=== PATIENT | female | born 1985 | race Caucasian/White ===

== ENCOUNTER 2016-06-26 02:18 | Outpatient (CLI) | payer OTHER ==
[~2016-06-26] VITALS: Ht 170.2 cm; Wt 115.0 kg
[2016-06-26 03:34] VITALS: BP 111/62
== END 2016-06-26 04:00 | disposition home or self-care (01) ==
LOC: LDOP 02:18
PROVIDERS: ATTEND Obstetrics & Gynecology
DX: O26.893 Other specified pregnancy related conditions, third trimester (principal); R10.9 Unspecified abdominal pain; O99.513 Diseases of the respiratory system complicating pregnancy, third trimester; J45.909 Unspecified asthma, uncomplicated; O99.283 Endocrine, nutritional and metabolic diseases complicating pregnancy, third trimester; E07.89 Other specified disorders of thyroid; Z3A.39 39 weeks gestation of pregnancy
CPT/HCPCS: 59025; 99211; G0463

== ENCOUNTER 2016-07-01 00:18 | Inpatient (IN) | payer OTHER ==
[~2016-07-01] VITALS: Ht 170.2 cm; Wt 115.0 kg
[2016-07-01] MEDS ORDERED: OXYTOCIN 30U/ 0.9% NaCL 500ML 500 ML IV ONE (00:29)
[2016-07-01] MEDS ORDERED: D5%-LACTATED RINGERS 1,000 ML IV SCH (00:29)
[2016-07-01] MEDS ORDERED: LACTATED RINGERS 1,000 ML IV SCH ×2 (00:29→03:06)
[2016-07-01] MEDS ORDERED: CALCIUM CARBONATE 500 MG TAB.CHEW PO PRN ×2 (00:30→13:30)
[2016-07-01] MEDS ORDERED: FENTANYL PF 100 MCG/2ML IVPush PRN (00:30)
[2016-07-01] MEDS ORDERED: FENTANYL PF 100 MCG/2ML IV PRN (00:30)
[2016-07-01] MEDS ORDERED: ONDANSETRON 2MG/ML, 2ML IVPush PRN (00:30)
[2016-07-01] MEDS ORDERED: TERBUTALINE 1 MG/ML, 1ML IVPush PRN (00:30)
[2016-07-01] MEDS ORDERED: NEWBORN KIT ONE (00:34)
[2016-07-01] MEDS ORDERED: OXYTOCIN 30U/ 0.9% NaCL 500ML 500 ML ONE ×2 (00:34→07:22)
[2016-07-01 01:08] LABS: HEMOGLOBIN 12.5 g/dL (11.7-16.4)
[2016-07-01] MEDS: CLINDAMYCIN PMX 900MG/50ML 50 ML IVPB SCH ×2 (01:38→09:30)
[2016-07-01] MEDS ORDERED: FENTANYL/BUPIV./NS/PF 250 ML EPIDCONT ONE ×2 (02:00→02:01)
[2016-07-01] MEDS ORDERED: LIDOCAINE/PF 1.5%-EPI 1:200K, 30ML ONE (02:01)
[2016-07-01] MEDS ORDERED: BUPIVACAINE 0.25% ONE (02:01)
[2016-07-01] MEDS ORDERED: LIDOCAINE 1%, 20ML ONE ×2 (02:01→12:57)
[2016-07-01] MEDS ORDERED: FENTANYL/BUPIV./NS/PF 250 ML EPIDCONT SCH (03:06)
[2016-07-01] MEDS ORDERED: LACTATED RINGERS 1,000 ML IVBOLUS PRN (03:30)
[2016-07-01 07:40] VITALS: BP 109/58
[2016-07-01] MEDS ORDERED: LEVO25TA2 PO (08:09)
[2016-07-01] MEDS ORDERED: PREN1TAB60 PO (08:42)
[2016-07-01] MEDS ORDERED: OXYTOCIN 30U/ 0.9% NaCL 500ML 500 ML IV PRN (09:36)
[2016-07-01] MEDS: OXYTOCIN 30U/ 0.9% NaCL 500ML 500 ML IV SCH ×2 (13:17→23:17)
[2016-07-01] MEDS ORDERED: MISOPROSTOL 200 MCG TABLET PO PRN (13:30)
[2016-07-01] MEDS ORDERED: HYDROcodone/APAP 5/325 TABLET PO PRN ×2 (13:30)
[2016-07-01] MEDS ORDERED: ACETAMINOPHEN 325 MG TABLET PO PRN (13:30)
[2016-07-01] MEDS ORDERED: DOCUSATE 100 MG CAPSULE PO PRN (13:30)
[2016-07-01] MEDS ORDERED: ONDANSETRON 2MG/ML, 2ML IV PRN (13:30)
[2016-07-01 16:05] VITALS: BP 99/57
[2016-07-01 19:10] VITALS: BP 103/60
[2016-07-01] MEDS: IBUPROFEN 800 MG TABLET PO PRN (20:25)
[2016-07-01 21:13] LABS: HEMOGLOBIN 10.9 g/dL (11.7-16.4)
[2016-07-01] MEDS ORDERED: RHOGAM FROM BLOOD BANK 1 NOTE EA IM/IV ONE (23:30)
[2016-07-01 23:34] VITALS: BP 98/59
[2016-07-02] MEDS: IBUPROFEN 800 MG TABLET PO PRN (04:50)
[2016-07-02 05:24] VITALS: BP 105/66
[2016-07-02 08:20] VITALS: BP 103/60
[2016-07-02] MEDS ORDERED: PRENATAL VIT/IRON/FA 1 EACH TABLET PO SCH (09:00)
[2016-07-02] MEDS: OXYTOCIN 30U/ 0.9% NaCL 500ML 500 ML IV SCH ×2 (09:17→16:04)
[2016-07-02 12:09] VITALS: BP 110/60
[2016-07-02] MEDS ORDERED: IBUP-1222 PO (13:49)
[2016-07-02 16:10] VITALS: BP 128/78
== END 2016-07-02 13:25 | disposition home or self-care (01) | DRG 775 ==
LOC: LDOP 00:18 → LDIP 00:49 → 2NW 15:50
PROVIDERS: ADMIT Specialist; ATTEND Specialist
PROC: 10E0XZZ Delivery of Products of Conception, External Approach (ICD-10-PCS; principal; 2016-07-01)
PROC: 0KQM0ZZ Repair Perineum Muscle, Open Approach (ICD-10-PCS; 2016-07-01)
PROC: 10907ZC Drainage of Amniotic Fluid, Therapeutic from Products of Conception, Via Natural or Artificial Opening (ICD-10-PCS; 2016-07-01)
PROC: 00HU33Z Insertion of Infusion Device into Spinal Canal, Percutaneous Approach (ICD-10-PCS; 2016-07-01)
PROC: 3E0R3CZ (ICD-10-PCS; 2016-07-01)
PROC: 30233S1 Transfusion of Nonautologous Globulin into Peripheral Vein, Percutaneous Approach (ICD-10-PCS; 2016-07-01)
DX: O99.284 Endocrine, nutritional and metabolic diseases complicating childbirth (principal); E03.9 Hypothyroidism, unspecified; O99.824 Streptococcus B carrier state complicating childbirth; O69.1XX0 Labor and delivery complicated by cord around neck, with compression, not applicable or unspecified; O99.214 Obesity complicating childbirth; E66.9 Obesity, unspecified; O70.1 Second degree perineal laceration during delivery; O34.211 Maternal care for low transverse scar from previous cesarean delivery; Z37.0 Single live birth; Z3A.40 40 weeks gestation of pregnancy; Z88.0 Allergy status to penicillin; Z68.39 Body mass index [BMI] 39.0-39.9, adult; Z23 Encounter for immunization
CPT/HCPCS: 36415; 85025; 85461; 86850; 86900; J2790; J3490; J2590; J3010; J7120; J7121

== ENCOUNTER 2019-05-11 15:35 | Inpatient (IN) | payer OTHER ==
[~2019-05-11] VITALS: Ht 170.2 cm; Wt 122.7 kg
[~2019-05-11 15:35] MED LIST: IBUP-1222 PO; LEVO25TA2 PO; PREN1TAB60 PO
[2019-05-15] MEDS ORDERED: OXYTOCIN 30U/ 0.9% NaCL 500ML 500 ML IV ONE (05:48)
[2019-05-15] MEDS ORDERED: D5%-LACTATED RINGERS 1,000 ML IV SCH (05:48)
[2019-05-15] MEDS ORDERED: OXYTOCIN 30U/ 0.9% NaCL 500ML 500 ML IV PRN (05:48)
[2019-05-15] MEDS ORDERED: NEWBORN KIT ONE (05:56)
[2019-05-15] MEDS ORDERED: FENTANYL PF 100 MCG/2ML IV PRN (06:00)
[2019-05-15] MEDS ORDERED: CALCIUM CARBONATE 500 MG TAB.CHEW PO PRN (06:00)
[2019-05-15] MEDS ORDERED: TERBUTALINE 1 MG/ML, 1ML SQ PRN (06:00)
[2019-05-15] MEDS ORDERED: METOCLOPRAMIDE 5 MG/ML, 2ML IVPush PRN (06:00)
[2019-05-15] MEDS ORDERED: TERBUTALINE 1 MG/ML, 1ML IVPush PRN (06:00)
[2019-05-15] MEDS ORDERED: FENTANYL PF 100 MCG/2ML IVPush PRN (06:00)
[2019-05-15] MEDS ORDERED: ONDANSETRON 2MG/ML, 2ML IVPush PRN ×2 (06:00→20:30)
[2019-05-15] MEDS ORDERED: SODIUM CITRATE/CITRIC ACID 30 ML UDC PO PRN (06:00)
[2019-05-15 06:27] LABS: BASOPHILS # (AUTO) 0.02 x10^3/uL (0-0.1); BASOPHILS % (AUTO) 0 % (0-1); EOSINOPHILS # (AUTO) 0.07 x10^3/uL (0-0.4); EOSINOPHILS % (AUTO) 1 % (1-7); LYMPHOCYTES # (AUTO) 1.47 x10^3/uL (1-3.4); LYMPHOCYTES % (AUTO) 19 % (22-44); MD NO; MEAN CORPUSCULAR HEMOGLOBIN 30.4 pg (27.0-34.8); MEAN CORPUSCULAR HGB CONC 33.4 g/dL (32.4-35.8); MEAN CORPUSCULAR VOLUME 90.8 fL (80-100); MEAN PLATELET VOLUME 8.6 fL (7.4-10.4); MONOCYTES # (AUTO) 0.68 x10^3/uL (0.2-0.8); MONOCYTES % (AUTO) 9 % (2-9); NEUTROPHILS % (AUTO) 71 % (42-75); PLATELET COUNT 188 x10^3/uL (130-400); RED BLOOD COUNT 4.07 x10^6/uL (3.82-5.3); RED CELL DISTRIBUTION WIDTH 14.5 % (9.6-15.2)
[2019-05-15] MEDS ORDERED: OXYTOCIN 30U/ 0.9% NaCL 500ML 500 ML ONE ×2 (06:59→19:45)
[2019-05-15] MEDS: LACTATED RINGERS 1,000 ML IV SCH ×3 (07:04→20:20)
[2019-05-15] MEDS ORDERED: LIDOCAINE 1%, 10ML ONE (07:53)
[2019-05-15] MEDS ORDERED: FENTANYL/BUPIV./NS/PF 250 ML EPIDCONT SCH ×2 (11:05→20:12)
[2019-05-15] MEDS ORDERED: FENTANYL PF 500 MCG, BUPIVACAINE/PF 0.5%, 30ML 62.5 ML in SODIUM CHLORIDE 0.9% 177.5 ML EPIDCONT SCH (11:30)
[2019-05-15] MEDS ORDERED: BUPIVACAINE 0.25% ONE (16:30)
[2019-05-15] MEDS ORDERED: HYDROcodone/APAP 5/325 TABLET PO PRN (19:00)
[2019-05-15] MEDS ORDERED: MISOPROSTOL 200 MCG TABLET PR PRN (19:00)
[2019-05-15] MEDS ORDERED: ACETAMINOPHEN 325 MG TABLET PO PRN (19:00)
[2019-05-15] MEDS ORDERED: RHOGAM FROM BLOOD BANK 1 NOTE EA IM/IV ONE (19:00)
[2019-05-15] MEDS ORDERED: ONDANSETRON 2MG/ML, 2ML IV PRN (19:00)
[2019-05-15] MEDS ORDERED: OXYcodone/APAP 5/325MG TABLET PO PRN (19:00)
[2019-05-15] MEDS ORDERED: BISACODYL 10 MG SUPP PR PRN (19:00)
[2019-05-15] MEDS ORDERED: DOCUSATE 100 MG CAPSULE PO PRN (19:00)
[2019-05-15] MEDS ORDERED: LACTATED RINGERS 1,000 ML IV SCH (20:12)
[2019-05-15] MEDS: OXYTOCIN 30U/ 0.9% NaCL 500ML 500 ML IV SCH (20:21)
[2019-05-15] MEDS ORDERED: DIPHENHYDRAMINE 50 MG/ML, 1ML IVPush PRN (20:30)
[2019-05-15] MEDS ORDERED: LACTATED RINGERS 1,000 ML IVBOLUS PRN (20:30)
[2019-05-15] MEDS ORDERED: EPHEDRINE 50 MG/ML, 1ML IVPush PRN (20:30)
[2019-05-15] MEDS ORDERED: NALOXONE 0.4 MG/ML, 1ML IVPush PRN (20:30)
[2019-05-15] MEDS ORDERED: IBUPROFEN 800 MG TABLET ONE (21:00)
[2019-05-15] MEDS: IBUPROFEN 800 MG TABLET PO PRN (21:01)
[2019-05-15 22:30] VITALS: BP 120/69
[2019-05-16 04:30] VITALS: BP 100/62
[2019-05-16] MEDS: OXYTOCIN 30U/ 0.9% NaCL 500ML 500 ML IV SCH (04:41)
[2019-05-16] MEDS: IBUPROFEN 800 MG TABLET PO PRN ×2 (05:00→13:33)
[2019-05-16 07:01] VITALS: BP 111/73
[2019-05-16] MEDS ORDERED: LEVOTHYROXINE 100 MCG TABLET PO SCH (07:30)
[2019-05-16 08:57] LABS: BASOPHILS # (AUTO) 0.02 x10^3/uL (0-0.1); BASOPHILS % (AUTO) 0 % (0-1); EOSINOPHILS # (AUTO) 0.02 x10^3/uL (0-0.4); EOSINOPHILS % (AUTO) 0 % (1-7); LYMPHOCYTES # (AUTO) 1.53 x10^3/uL (1-3.4); LYMPHOCYTES % (AUTO) 18 % (22-44); MD NO; MEAN CORPUSCULAR HEMOGLOBIN 30.8 pg (27.0-34.8); MEAN CORPUSCULAR HGB CONC 33.9 g/dL (32.4-35.8); MEAN CORPUSCULAR VOLUME 90.9 fL (80-100); MEAN PLATELET VOLUME 8.9 fL (7.4-10.4); MONOCYTES # (AUTO) 0.72 x10^3/uL (0.2-0.8); MONOCYTES % (AUTO) 8 % (2-9); NEUTROPHILS # (AUTO) 6.31 x10^3/uL (1.8-6.8); NEUTROPHILS % (AUTO) 73 % (42-75); PLATELET COUNT 173 x10^3/uL (130-400); RED BLOOD COUNT 3.75 x10^6/uL (3.82-5.3); RED CELL DISTRIBUTION WIDTH 14.6 % (9.6-15.2)
[2019-05-16] MEDS ORDERED: PRENATAL VIT/IRON/FA 1 EACH TABLET PO SCH (09:00)
[2019-05-16 11:55] VITALS: BP 102/69
[2019-05-16 16:03] VITALS: BP 117/77
== END 2019-05-16 19:00 | disposition home or self-care (01) | DRG 807 ==
LOC: LDIP 05-15 05:44 → 2NW 05-15 22:24
PROVIDERS: ADMIT Obstetrics & Gynecology; ATTEND Obstetrics & Gynecology
PROC: 10E0XZZ Delivery of Products of Conception, External Approach (ICD-10-PCS; principal; 2019-05-15)
PROC: 10907ZC Drainage of Amniotic Fluid, Therapeutic from Products of Conception, Via Natural or Artificial Opening (ICD-10-PCS; 2019-05-15)
PROC: 3E033VJ Introduction of Other Hormone into Peripheral Vein, Percutaneous Approach (ICD-10-PCS; 2019-05-15)
PROC: 3E0R3BZ Introduction of Anesthetic Agent into Spinal Canal, Percutaneous Approach (ICD-10-PCS; 2019-05-15)
PROC: 00HU33Z Insertion of Infusion Device into Spinal Canal, Percutaneous Approach (ICD-10-PCS; 2019-05-15)
DX: O48.0 Post-term pregnancy (principal); Z37.0 Single live birth; O99.284 Endocrine, nutritional and metabolic diseases complicating childbirth; E03.9 Hypothyroidism, unspecified; O34.211 Maternal care for low transverse scar from previous cesarean delivery; O99.214 Obesity complicating childbirth; Z88.0 Allergy status to penicillin; Z3A.40 40 weeks gestation of pregnancy
CPT/HCPCS: 36415; J3490; S0020; 82803; 85025; 85461; 86592; 86850; 86900; G0378; J2790; J3010; J2590; J7050; J7120